=== PATIENT | male | born 1995 | race Caucasian/White ===

== ENCOUNTER 2017-07-06 16:47 | Emergency (ER) | payer BC ==
--- NOTE | 2017-07-06 17:37 | ER Document Report ---
ED Medical Screen (RME) - General Chief Complaint: Abdominal Pain Stated Complaint: HERNIA PAIN Time Seen by Provider: 07/06/17 17:36 Mode of Arrival: Ambulatory Information source: Patient TRAVEL OUTSIDE OF THE [place] IN LAST 30 DAYS: No - HPI Patient complains to provider of: abd pain Onset: Yesterday - pt states he has a "hernia" which has gotten markedly worse with bulging and redness since yesterday. - Related Data Allergies/Adverse Reactions: No Known Allergies Allergy (Verified 07/21/14 15:07) Home Medications: Current Home Medications No Home Medications 07/06/17 [History] Past Medical History - Social History Chew tobacco use (# tins/day): No Frequency of alcohol use: Occasional Drug Abuse: None Renal/ Medical History: Denies: Hx Peritoneal Dialysis Musculoskeltal Medical History: Reports Hx Musculoskeletal Trauma Traumatic Medical History: Reports: Hx Fractures - right foot and elbow Past Surgical History: Reports: Hx Orthopedic Surgery - right foot, right elbow - Immunizations Immunizations up to date: Yes Hx Diphtheria, Pertussis, Tetanus Vaccination: Yes Physical Exam - Vital signs Vitals: Temp Pulse BP Pulse Ox 99.3 F 66 137/75 H 98 07/06/17 17:22 07/06/17 17:22 07/06/17 17:22 07/06/17 17:22 Course - Vital Signs Vital signs: Temp Pulse Resp BP Pulse Ox 99.3 F 66 137/75 H 98 07/06/17 17:22 07/06/17 17:22 07/06/17 17:22 07/06/17 17:22
[2017-07-06 18:03] LABS: ABSOLUTE EOSINOPHILS # (AUTO) 0.2 10^3/uL (0.0-0.6); ABSOLUTE LYMPHOCYTES (AUTO) 1.9 10^3/uL (0.5-4.7); ABSOLUTE MONOCYTES (AUTO) 0.7 10^3/uL (0.1-1.4); ABSOLUTE NEUT (AUTO) 6.8 10^3/uL (1.7-8.2); BASOPHILS % (AUTO) 0.5 % (0-2); EOSINOPHILS % (AUTO) 2.2 % (0-6); HEMATOCRIT 46.7 % (37.9-51.0); HEMOGLOBIN 16.2 g/dL (13.5-17.0); HGB HCT DIFFERENCE 1.9; LYMPHOCYTES % (AUTO) 19.5 % (13-45); MEAN CORPUSCULAR HGB CONC 34.8 g/dL (32.0-36.0); MEAN CORPUSCULAR VOLUME 86 fl (80-97); MONOCYTES % (AUTO) 6.9 % (3-13); SEGMENTED NEUTROPHILS % (AUTO) 70.9 % (42-78); WHITE BLOOD COUNT 9.6 10^3/uL (4.0-10.5)
[2017-07-06 18:22] LABS: ALANINE AMINOTRANSFERASE 42 U/L (21-72); ALBUMIN 4.5 g/dL (3.5-5.0); ALKALINE PHOSPHATASE 53 U/L (38-126); ANION GAP 12 (5-19); ASPARTATE AMINO TRANSFERASE 30 U/L (17-59); BILIRUBIN,DIRECT 0.3 mg/dL (0.0-0.4); BILIRUBIN,TOTAL 0.4 mg/dL (0.2-1.3); BLOOD UREA NITROGEN 12 mg/dL (7-20); CALCIUM 9.8 mg/dL (8.4-10.2); CARBON DIOXIDE 28 mmol/L (22-30); CHLORIDE 103 mmol/L (98-107); CREATININE RESULT 0.87 mg/dL (0.52-1.25); GLUCOSE 84 mg/dL (75-110); LIPASE 32.4 U/L (23-300); POTASSIUM 4.5 mmol/L (3.6-5.0); SODIUM 143.4 mmol/L (137-145); TOTAL PROTEIN 6.6 g/dL (6.3-8.2)
--- NOTE | 2017-07-06 18:25 | RADIOLOGY REPORT (SQ) ---
EXAM DESCRIPTION: CT ABD/PELVIS WITH IV ONLY COMPLETED DATE/TIME: 07/06/2017 6:00 pm REASON FOR STUDY: abd pain COMPARISON: None. TECHNIQUE: CT scan of the abdomen and pelvis performed using helical scanning technique with dynamic intravenous contrast injection. No oral contrast. Images reviewed with lung, soft tissue, and bone windows. Reconstructed coronal and sagittal MPR images reviewed. Delayed images for evaluation of the urinary system also acquired. All images stored on PACS. All CT scanners at this facility use dose modulation, iterative reconstruction, and/or weight based d osing when appropriate to reduce radiation dose to as low as reasonably achievable (ALARA). [facility]: Dose Right [facility]: CareDose [facility]: Dose Right [facility]: Teradose 4D [facility]: Nuventix CONTRAST TYPE AND DOSE: 100 mL Isovue 370- low osmolar. RENAL FUNCTION: None required. The patient is less than 50 years old. RADIATION DOSE: . LIMITATIONS: None. FINDINGS: LOWER CHEST: No significant findings. No nodules or infiltrates. LIVER: Normal size. No masses. No dilated ducts. SPLEEN: Normal size. No focal lesions. PANCREAS: No masses. No significant calcifications. No adjacent inflammation or peripancreatic fluid collections. Pancreatic duct not dilated. GALLBLADDER: No identified stones by CT criteria. No inflammatory changes to suggest cholecystitis. ADRENAL GLANDS: No significant masses or asymmetry. RIGHT KIDNEY AND URETER: No solid masses. No significant calcifications. No hydronephrosis or hyd roureter. LEFT KIDNEY AND URETER: No solid masses. No significant calcifications. No hydronephrosis or hydr oureter. AORTA AND VESSELS: No aneurysm. No dissection. Renal arteries, SMA, celiac without stenosis. RETROPERITONEUM: No retroperitoneal adenopathy, hemorrhage or masses. BOWEL AND PERITONEAL CAVITY: No masses or inflammatory changes. No free fluid or peritoneal masses. APPENDIX: Normal. PELVIS: No mass. No free fluid. Normal bladder. ABDOMINAL WALL: No masses. No hernias. BONES: No significant or acute findings. OTHER: No other significant finding. IMPRESSION: NO SIGNIFICANT OR ACUTE FINDING IN THE ABDOMEN OR PELVIS ON CT SCAN WITH IV CONTRAST. TECHNICAL DOCUMENTATION: JOB ID: [id number] Quality ID # [id number]: Final reports with documentation of one or more dose reduction techniques (e.g., Au tomated exposure control, adjustment of the mA and/or kV according to patient size, use of iterative reconstruction technique) 2011 [employer]- All Rights Reserved
[2017-07-06 19:33] LABS: APPEARANCE,URINE CLEAR; BILIRUBIN,URINE NEGATIVE (NEGATIVE); GLUCOSE, URINE NEGATIVE (NEGATIVE); KETONES,URINE NEGATIVE (NEGATIVE); LEUKOCYTE ESTERASE,URINE NEGATIVE (NEGATIVE); NITRITE,URINE NEGATIVE (NEGATIVE); PROTEIN,URINE NEGATIVE (NEGATIVE); URINE SPECIFIC GRAVITY 1.055; UROBILINOGEN,URINE NEGATIVE mg/dL (<2.0)
--- NOTE | 2017-07-06 19:47 | ER Document Report ---
ED General - General Chief Complaint: Abdominal Pain Stated Complaint: HERNIA PAIN Time Seen by Provider: 07/06/17 17:36 Mode of Arrival: Ambulatory Information source: Patient Notes: This is a 21-year-old male with no prior medical problems who presents to the emergency room with periumbilical pain which started at work. Patient states he works at [employer] and was lifting boxes and all of a sudden experienced acute pain to the umbilicus. Patient denies any nausea, vomiting, fever. Patient denies any testicular pain. TRAVEL OUTSIDE OF THE [place] IN LAST 30 DAYS: No - HPI Onset: Yesterday Onset/Duration: Gradual Quality of pain: No pain Severity: None Pain Level: Denies Associated symptoms: None Exacerbated by: Denies Relieved by: Denies Similar symptoms previously: No Recently seen / treated by doctor: No - Related Data Allergies/Adverse Reactions: No Known Allergies Allergy (Verified 07/21/14 15:07) Past Medical History - General Information source: Patient - Social History Smoking Status: Current Every Day Smoker Cigarette use (# per day): Yes - Half pack per day Chew tobacco use (# tins/day): No Frequency of alcohol use: Occasional Drug Abuse: None Lives with: Family Family History: Arthritis Patient has suicidal ideation: No Patient has homicidal ideation: No - Medical History Medical History: Negative Renal/ Medical History: Denies: Hx Peritoneal Dialysis Musculoskeltal Medical History: Reports Hx Musculoskeletal Trauma Traumatic Medical History: Reports: Hx Fractures - right foot and elbow Past Surgical History: Reports: Hx Orthopedic Surgery - right foot, right elbow - Immunizations Immunizations up to date: Yes Hx Diphtheria, Pertussis, Tetanus Vaccination: Yes Review of Systems - Review of Systems Constitutional: denies: Chills, Fever EENT: No symptoms reported Cardiovascular: No symptoms reported Respiratory: No symptoms reported Gastrointestinal: See HPI Genitourinary: No symptoms reported Male Genitourinary: No symptoms reported Musculoskeletal: No symptoms reported Skin: No symptoms reported Hematologic/Lymphatic: No symptoms reported Neurological/Psychological: No symptoms reported Physical Exam - Vital signs Vitals: Temp Pulse BP Pulse Ox 99.3 F 66 137/75 H 98 07/06/17 17:22 07/06/17 17:22 07/06/17 17:22 07/06/17 17:22 Notes: Physical exam: GENERAL: 21-year-old man, alert and oriented 3, no acute distress. HEAD: Atraumatic, normocephalic. EYES: Pupils equal round and reactive to light, extraocular movements intact, sclera anicteric, conjunctiva are normal. ENT: TMs normal, nares patent, oropharynx clear without exudates. Moist mucous membranes. NECK: Normal range of motion, supple without obvious mass or JVD. LUNGS: Breath sounds clear to auscultation bilaterally and equal. No wheezes rales or rhonchi. HEART: Regular rate and rhythm without murmurs, rubs or gallops. ABDOMEN: Soft, normoactive bowel sounds. Patient does have a mild amount of erythema in the umbilicus and extending just below. I do not palpate any hernias. He does have mild tenderness over the area without rebound. There are no masses. The patient does not have any tenderness in the left lower quadrant or McBurney's point. The patient does not have any suprapubic tenderness. Groin: No palpable hernias appreciated on coughing Penis: Shaft normal, testicles 2 normal, nontender. Scrotum clear. EXTREMITIES: Normal range of motion, no pitting or edema. No clubbing or cyanosis. NEUROLOGICAL: Cranial nerves II through XII grossly intact. Normal speech, moving all extremities. PSYCH: Normal mood, normal affect. SKIN: Warm, Dry, normal turgor, no rashes or lesions noted. Course - Re-evaluation Re-evalutation: 07/06/17 23:52 Note: Patient was examined standing up, no obvious hernia based upon positional changes. I will refer him to the surgical clinic. Skin is irritated, I will give him some Lotrimin cream to see if that has any effect on the superficial skin. - Vital Signs Vital signs: Temp Pulse Resp BP Pulse Ox 98.8 F 65 18 133/64 H 98 07/06/17 20:20 07/06/17 20:20 07/06/17 20:20 07/06/17 20:20 07/06/17 20:20 - Laboratory Result Diagrams: 07/06/17 17:45 07/06/17 17:45 - Diagnostic Test Radiology reviewed: Image reviewed, Reports reviewed - CT shows no obvious hernias. The appendix is reported as normal. Discharge - Discharge Clinical Impression: Umbilical pain Condition: Stable Disposition: HOME, SELF-CARE Additional Instructions: As we discussed, the CT scan showed a normal looking appendix and there were no obvious hernias. It is possible that you hurt the tissues around the bellybutton while you were lifting and this could potentially lead to a hernia in the future. I would like you to follow-up with the surgical clinic. You could apply ice packs to the area. I did get a cream for you to apply inside the belly button around the red area twice a day just to see if it would help. Return to the emergency room for worsening pain, pain moving to the right lower quadrant, any fever or vomiting. I put the number in for the surgical clinic. Prescriptions: Clotrimazole 1% Topical [Lotrimin 1% Topical Solution] 1 applic TP DAILY 7 Days #10 ml Forms: Special Work Note, Return to Work Referrals: ERROL WARD MD [ACTIVE STAFF] - Follow up in 3-5 days (This is the number the surgery clinic)
[2017-07-06 20:04] LABS: RBC,URINE 0-1 /HPF; WBC,URINE 0-1 /HPF
[2017-07-06 20:31] VITALS: BP 133/64
== END 2017-07-06 20:31 | disposition home or self-care (01) ==
LOC: ER 16:47
DX: R10.33 Periumbilical pain (principal); F17.210 Nicotine dependence, cigarettes, uncomplicated
CPT/HCPCS: 36415; 74177; 80053; 81001; 83690; 85025; 99284

== ENCOUNTER 2017-07-08 12:22 | Emergency (ER) | payer SELFPAY ==
[2017-07-08 12:53] VITALS: BP 123/87
[2017-07-08] MEDS ORDERED: CEPHALEXIN 500 MG CAPSULE PO ONE (13:22)
--- NOTE | 2017-07-08 13:24 | ER Document Report ---
HPI - HPI Patient complains to provider of: Work note Onset: Other - 2 days ago Onset/Duration: Persistent Quality of pain: Achy Pain Level: 3 Context: Patient states he was here 2 days ago and diagnosed with a fungal infection to his abdomen. Patient states that he has had continued soreness to his abdomen. Patient states that he was given a prescription for medication but he plans to get it filled today. Patient states that the area of redness has started to improve as compared to his previous ER visit. Patient states that he wanted to be out of work 2 more days and he presents today only requesting a note for his job. Patient denies any fever, nausea or vomiting. Associated Symptoms: Other - Abdominal tenderness, erythema. denies: Fever, Nausea Exacerbated by: Denies Relieved by: Denies Similar symptoms previously: No Recently seen / treated by doctor: Yes - ROS ROS below otherwise negative: Yes Systems Reviewed and Negative: Yes All other systems reviewed and negative - CONSTITUTIONAL Constitutional: DENIES: Fever, Chills - GASTROINTESTINAL Gastrointestinal: REPORTS: Abdominal Pain. DENIES: Nausea, Patient vomiting, Diarrhea - MUSCULOSKELETAL Musculoskeletal: DENIES: Extremity pain - DERM Skin Color: Erythema Skin Problems: None Past Medical History - General Information source: Patient - Social History Smoking Status: Current Every Day Smoker Smoking Education Provided: Yes Frequency of alcohol use: None Drug Abuse: None Occupation: Foodservice Family History: Arthritis Renal/ Medical History: Denies: Hx Peritoneal Dialysis Musculoskeltal Medical History: Reports Hx Musculoskeletal Trauma Traumatic Medical History: Reports: Hx Fractures - right foot and elbow Past Surgical History: Reports: Hx Orthopedic Surgery - right foot, right elbow - Immunizations Immunizations up to date: Yes Hx Diphtheria, Pertussis, Tetanus Vaccination: Yes Vertical Provider Document - CONSTITUTIONAL Agree With Documented VS: Yes Exam Limitations: No Limitations General Appearance: WD/WN, No Apparent Distress - INFECTION CONTROL TRAVEL OUTSIDE OF THE [place] IN LAST 30 DAYS: No - HEENT HEENT: Atraumatic, Normocephalic - NECK Neck: Normal Inspection, Supple - RESPIRATORY Respiratory: Breath Sounds Normal, No Respiratory Distress O2 Sat by Pulse Oximetry: 98 - CARDIOVASCULAR Cardiovascular: Regular Rate, Regular Rhythm - GI/ABDOMEN Gastrointestinal: Abdomen Soft, Abdomen Tender - Mild periumbilical tenderness with mild erythema to the inferior aspect of umbilicus, no drainage or discharge - BACK Back: Normal Inspection - MUSCULOSKELETAL/EXTREMETIES Musculoskeletal/Extremeties: MAEW - NEURO Level of Consciousness: Awake, Alert, Appropriate Motor/Sensory: No Motor Deficit - DERM Integumentary: Warm, Dry. negative: Abscess Notes: Mild erythema to inferior umbilical area Course - Vital Signs Vital signs: Temp Pulse Resp BP Pulse Ox 98.3 F 64 18 123/87 H 98 07/08/17 12:50 07/08/17 12:50 07/08/17 12:50 07/08/17 12:50 07/08/17 12:50 Discharge - Discharge Clinical Impression: Cellulitis Qualifiers: Site of cellulitis: trunk Site of cellulitis of trunk: abdominal wall Qualified Code(s): L03.311 - Cellulitis of abdominal wall Condition: Stable Disposition: HOME, SELF-CARE Instructions: Cellulitis ([facility]), Cephalexin ([facility]) Additional Instructions: Return immediately for any new or worsening symptoms Followup with your primary care provider, call tomorrow to make a followup appointment Get the prescription for the cream that you are previously prescribed and take as directed Prescriptions: Cephalexin Monohydrate [Keflex 500 mg Capsule] 500 mg PO Q6H 5 Days capsule Forms: Smoking Cessation Education, Return to Work Referrals: [facility] [Provider Group] - Follow up as needed
== END 2017-07-08 14:50 | disposition home or self-care (01) ==
LOC: ER 12:22
DX: L03.311 Cellulitis of abdominal wall (principal); F17.200 Nicotine dependence, unspecified, uncomplicated; Z71.6 Tobacco abuse counseling
CPT/HCPCS: 99281

== ENCOUNTER 2018-02-25 12:17 | Emergency (ER) | payer SELFPAY ==
--- NOTE | 2018-02-25 12:40 | ER Document Report ---
HPI - HPI Patient complains to provider of: Right arm pain Pain Level: 3 Context: Patient is a 22-year-old healthy male complaining of pain to his right proximal forearm. Patient is a history of internal fixation approximately 4 years ago. He said he noticed about a year and a half ago that something was protruding almost to his skin. Concerned about the hardware. Patient denies any recent trauma. No swelling, redness around the area. No numbness to his right arm. Patient is right-hand dominant Exacerbated by: Denies Relieved by: Denies Similar symptoms previously: No Recently seen / treated by doctor: No - ROS Systems Reviewed and Negative: Yes All other systems reviewed and negative Past Medical History - General Information source: Patient - Social History Smoking Status: Current Every Day Smoker Frequency of alcohol use: None Drug Abuse: None Lives with: Family Family History: Reviewed & Not Pertinent, Arthritis Renal/ Medical History: Denies: Hx Peritoneal Dialysis Musculoskeletal Medical History: Reports Hx Musculoskeletal Trauma Traumatic Medical History: Reports: Hx Fractures - right foot and elbow Past Surgical History: Reports: Hx Orthopedic Surgery - right foot, right elbow - Immunizations Immunizations up to date: Yes Hx Diphtheria, Pertussis, Tetanus Vaccination: Yes Vertical Provider Document - CONSTITUTIONAL Agree With Documented VS: Yes Exam Limitations: No Limitations - INFECTION CONTROL TRAVEL OUTSIDE OF THE [place] IN LAST 30 DAYS: No - HEENT HEENT: Atraumatic, PERRLA - NECK Neck: Supple - RESPIRATORY Respiratory: Breath Sounds Normal, No Respiratory Distress - MUSCULOSKELETAL/EXTREMETIES Musculoskeletal/Extremeties: Non-Tender Notes: Positive firm protrusion to proximal ulna. No erythema, edema or signs of infection. Full range of motion with elbow. Full range of motion with wrist. Distal sensory motor circulation intact Course - Re-evaluation Re-evalutation: 02/25/18 12:37 No circulatory compromise. No concern for open fracture or compartment syndrome or DVT. 02/25/18 20:05 X-ray is showing orthopedic hardware identified at the level of the distal humerus and proximal ulna. Wire suture is identified with close proximity to the skin at the level of the proximal ulna. This correlates with the protrusion that the patient is concerned about. Discharge - Discharge Clinical Impression: Right arm pain Condition: Stable Disposition: HOME, SELF-CARE Additional Instructions: I recommend you follow-up with orthopedist for further evaluation and treatment [facility] [email or web address] [place] [address]
--- NOTE | 2018-02-25 13:25 | RADIOLOGY REPORT (SQ) ---
EXAM DESCRIPTION: FOREARM RIGHT COMPLETED DATE/TIME: 02/25/2018 1:10 pm REASON FOR STUDY: right arm pain COMPARISON: None. NUMBER OF VIEWS: Two views. TECHNIQUE: Two radiographic images acquired of the right forearm, including elbow and wrist in at le ast one projection. LIMITATIONS: None. FINDINGS: MINERALIZATION: Normal. BONES: No acute fracture. No worrisome bone lesions. SOFT TISSUES: No obvious swelling or foreign body. OTHER: Orthopedic hardware is identified at the level of the distal humerus and proximal ulna. Wire suture is identified which is in close proximity to the skin at the level of the proximal ulna IMPRESSION: No acute fracture. Orthopedic hardware as noted above. Other findings as noted above. TECHNICAL DOCUMENTATION: JOB ID: [id number] [employer]- All Rights Reserved Reading location - IP/workstation name: [email or web address]
== END 2018-02-25 13:29 | disposition home or self-care (01) ==
LOC: ER 12:17
DX: M79.631 Pain in right forearm (principal); F17.200 Nicotine dependence, unspecified, uncomplicated; Z98.890 Other specified postprocedural states; Z87.81 Personal history of (healed) traumatic fracture
CPT/HCPCS: 99283

== ENCOUNTER 2020-02-03 11:20 | Emergency (ER) | payer SELFPAY ==
[2020-02-03 12:02] VITALS: BP 135/62
--- NOTE | 2020-02-03 14:09 | ER Document Report ---
ED ENT - General Chief Complaint: Sore Throat Stated Complaint: SORE THROAT/DIARRHEA/BODY ACHE Time Seen by Provider: 02/03/20 13:09 Primary Care Provider: JABIER HOFFMANN MD [COMMUNITY BASED STAFF] - Follow up as needed Mode of Arrival: Ambulatory Information source: Patient Notes: 24-year-old male with no previous medical problems presents to the emergency room complaining of a sore throat for the past 2 days. States it hurts to swallow. But is able to tolerate p.o. fluids. Had one episode of diarrhea earlier today. Complains of general fatigue, denies any fevers. No recent travel. No COVID-19 exposure. States he has been taking NyQuil and DayQuil without relief. He denies any ill contacts. TRAVEL OUTSIDE OF THE [place] IN LAST 30 DAYS: No - Related Data Allergies/Adverse Reactions: No Known Allergies Allergy (Verified 02/03/20 12:45) Past Medical History - General Information source: Patient - Social History Smoking Status: Current Every Day Smoker Frequency of alcohol use: Occasional Drug Abuse: Marijuana Family History: Reviewed & Not Pertinent, Arthritis Renal/ Medical History: Denies: Hx Peritoneal Dialysis Musculoskeletal Medical History: Reports Hx Musculoskeletal Trauma Traumatic Medical History: Reports: Hx Fractures - right foot and elbow Past Surgical History: Reports: Hx Orthopedic Surgery - right foot, right elbow - Immunizations Immunizations up to date: Yes Hx Diphtheria, Pertussis, Tetanus Vaccination: Yes Review of Systems - Review of Systems Constitutional: Malaise EENT: Throat pain Cardiovascular: No symptoms reported Respiratory: No symptoms reported Gastrointestinal: Diarrhea Musculoskeletal: No symptoms reported Skin: No symptoms reported Neurological/Psychological: No symptoms reported -: Yes All other systems reviewed and negative Physical Exam - Vital signs Vitals: Temp Pulse Resp BP Pulse Ox 99.2 F 74 16 135/62 H 96 02/03/20 12:00 02/03/20 12:00 02/03/20 12:00 02/03/20 12:00 02/03/20 12:00 - Notes Notes: VITAL SIGNS: Within normal limits. GENERAL: Mild acute distress, non-toxic appearance. HEAD: Normal with no signs of head trauma. EYES: PERRLA, EOMI, conjunctiva normal, no discharge. EARS: Hearing grossly intact. NOSE: Normal. THROAT: Oropharynx is normal. Posterior pharyngeal erythema, no exudate. Positive tonsillar enlargement, no peritonsillar abscess noted. No uvula enlargement. NECK: Normal range of motion, no tenderness, supple, bilateral anterior cervical lymphadenopathy, no JVD. Negative Meningismus, Negative brudzzinski, Negative Kernig's CHEST: Clear breath sounds bilaterally. No wheezes, rales, or rhonchi. CARDIAC: Regular rate and rhythm. S1 and S2, without murmurs, gallops, or rubs. VASCULAR: No Edema. Peripheral pulses normal and equal in all extremities. ABDOMEN: Normal and soft with no tenderness, no masses or pulsatile masses. GASTROINTESTINAL: Bowel sounds normal GENITOURINARY: Normal, No tenderness LYMPATHTIC: No lymphadenopathy noted. MUSCULOSKELETAL: Good range of motion of all major joints. Extremities without clubbing, cyanosis or edema. NEUROLOGICAL: Alert and oriented x 3. No focal sensory or strength deficits. Speech normal. Follows commands appropriately. PSYCHIATRIC: Normal Affect, judgement and mood. SKIN: Normal appearance with no rashes or lesions. Course - Re-evaluation Re-evalutation: 02/03/20 14:04 Patient is resting comfortably he is able to tolerate p.o. fluids. Afebrile, nontoxic-appearing. Reviewed positive strep results with patient. Counseled to push fluids. Tylenol and or Motrin as needed for pain. Medications as prescribed. Counseled to get a new toothbrush. Use the open for 2 days start with a new one a day 3. Outpatient follow-up with a primary care physician if not improving in 2 to 3 days. On-call physician was provided for you. Patient was given strict return to the emergency room guidelines. Return for any new or worsening symptoms. All questions were answered. Patient verbalized understanding and agrees with plan of care. 02/03/20 14:04 02/03/20 20:02 - Vital Signs Vital signs: Temp Pulse Resp BP Pulse Ox 99.2 F 74 16 135/62 H 96 02/03/20 12:00 02/03/20 12:00 02/03/20 12:00 02/03/20 12:02/03/20 12:00 Discharge - Discharge Clinical Impression: Strep throat Condition: Stable Disposition: HOME, SELF-CARE Instructions: Penicillin V K ([facility]), Strep Throat ([facility]) Additional Instructions: You have been diagnosed with strep throat based on a positive strep test. . Please take antibiotics as prescribed complete entire course. Please continue to take ibuprofen 600 mg every 6 hours or Tylenol 1000 mg every 6 hours as needed for throat discomfort. You can also gargle with salt water. Continue to drink plenty of fluids. Follow-up with a primary care doctor in the next several days if not improving in 2 to 3 days.. Return if you become unable to swallow, have difficulty breathing, pass out, have persistent vomiting that prevents you from being able to tolerate fluids, or have any other symptoms that are concerning to you. Prescriptions: Penicillin V Potassium [Penicillin Vk 500 mg Tablet] 500 mg PO BID #20 tablet Referrals: JABIER HOFFMANN MD [COMMUNITY BASED STAFF] - Follow up as needed
== END 2020-02-03 14:27 | disposition home or self-care (01) ==
LOC: ER 11:20
DX: J02.0 Streptococcal pharyngitis (principal); R19.7 Diarrhea, unspecified; M79.10 Myalgia, unspecified site; R53.81 Other malaise; F17.200 Nicotine dependence, unspecified, uncomplicated
CPT/HCPCS: 87880; 99283